=== PATIENT | female | born 1950 | race Hispanic/Latino ===

== ENCOUNTER 2022-02-11 22:50 | Inpatient (IN) | payer OTHER ==
[~2022-02-11] VITALS: Ht 162.6 cm; Wt 81.1 kg
[2022-02-11] MEDS ORDERED: NITROGLYCERIN 1GM OINT 1 INCH/1GM TD ONE (23:30)
[2022-02-11 23:34] LABS: BASOPHILS % (AUTO) 0.5 % (0.0-5.0); EOSINOPHILS % (AUTO) 0.9 % (0.0-8.0); HEMATOCRIT 34.5 % (36-48); LYMPHOCYTES % (AUTO) 26.8 % (21.0-51.0); MEAN CORPUSCULAR HEMOGLOBIN 28.6 pg (27.0-33.0); MEAN CORPUSCULAR VOLUME 86.7 fL (79-99); MONOCYTES % (AUTO) 7.4 % (3.0-13.0); NEUTROPHILS % (AUTO) 63.7 % (40.0-77.0); PLATELET COUNT (AUTO) 350 K/uL (130-400); RED BLOOD CELL COUNT(AUTO) 3.98 MIL/uL (4.00-5.50); RED CELL DISTRIBUTION WIDTH 13.6 % (11.0-15.5); WHITE BLOOD COUNT (AUTO) 10.3 K/uL (4.8-10.8)
[2022-02-11 23:45] LABS: CREATININE 2.2 mg/dL (0.5-1.5); POTASSIUM 4.2 mmol/L (3.5-5.1)
[2022-02-11 23:52] LABS: ALBUMIN 2.4 g/dL (3.5-5.0); BILIRUBIN,TOTAL 0.2 mg/dL (0.2-1.0); TOTAL PROTEIN, SERUM 5.7 g/dL (6.0-8.3)
[2022-02-11 23:53] LABS: APPEARANCE,URINE Clear (CLEAR); BILIRUBIN,URINE Negative (NEGATIVE); COLOR,URINE Yellow (YELLOW); GLUCOSE, URINE (UA) 500 mg/dL (NEGATIVE); KETONES,URINE Negative (NEGATIVE); LEUKOCYTE ESTERASE ,URINE Negative (NEGATIVE); NITRATE,URINE Negative (NEGATIVE); OCCULT BLOOD,URINE Trace (NEGATIVE); PROTEIN,URINE >=1000 mg/dL (NEGATIVE); UROBILINOGEN,URINE 0.2 mg/dL (0.2-1.0)
[2022-02-12 00:04] LABS: BACTERIA,URINE None Seen /HPF (None Seen); RBC,URINE 0-1 /HPF (0-1); SQUAMOUS EPITHELIAL CELL,UR Rare /HPF (0-2); WBC,URINE None Seen /HPF (0-1); YEAST,URINE BUDDING None Seen /HPF (None Seen)
[2022-02-12 00:05] LABS: MUCUS,URINE None Seen LPF (None Seen)
[2022-02-12] MEDS ORDERED: CLONIDINE HCL 0.1 MG TABLET ONE (00:39)
[2022-02-12] MEDS ORDERED: CLONIDINE HCL 0.1 MG TABLET PO ONE (01:00)
[2022-02-12] MEDS ORDERED: ATOR40TA69 PO (06:43)
[2022-02-12] MEDS ORDERED: GLIM4TAB36 PO (06:43)
[2022-02-12] MEDS ORDERED: METO100T14 PO (06:43)
[2022-02-12] MEDS ORDERED: LISI30TA4 PO (06:43)
[2022-02-12] MEDS ORDERED: HYDR12.54 PO (06:43)
[2022-02-12] MEDS ORDERED: METF-446 PO (06:43)
[2022-02-12] MEDS ORDERED: CLON0.1T PO (06:43)
[2022-02-12] MEDS ORDERED: GABA-529 PO (06:43)
[2022-02-12] MEDS ORDERED: SEMA2PEN SQ (06:44)
[2022-02-12] MEDS ORDERED: LACTULOSE 20 GM/30 ML UDCUP PO PRN (07:30)
[2022-02-12] MEDS ORDERED: ZOLPIDEM TARTRATE 5 MG TAB PO PRN (07:30)
[2022-02-12] MEDS ORDERED: MAG/ALUM/SIMETH 30 ML UDCUP PO PRN (07:30)
[2022-02-12] MEDS ORDERED: ACETAMINOPHEN 325 MG TAB PO PRN ×2 (07:30)
[2022-02-12] MEDS ORDERED: NITROGLYCERIN 0.4 MG SL TAB SL PRN (07:30)
[2022-02-12] MEDS ORDERED: GUAIFENESIN-DM 200/20 MG 10 ML PO PRN (07:30)
[2022-02-12] MEDS ORDERED: ONDANSETRON 4MG INJ IV PRN (07:30)
[2022-02-12] MEDS ORDERED: LISINOPRIL 20 MG TABLET PO SCH (09:00)
[2022-02-12] MEDS ORDERED: NON-FORMULARY MEDICATION 1 EACH (Lisinopril 30 MG) PO SCH (09:00)
[2022-02-12] MEDS ORDERED: HYDROCHLOROTHIAZIDE 25 MG TABLET PO SCH (09:00)
[2022-02-12] MEDS ORDERED: NON-FORMULARY MEDICATION 1 EACH (Metoprolol Tartrate 100 MG) PO SCH (09:00)
[2022-02-12] MEDS ORDERED: NON-FORMULARY MEDICATION 1 EACH (Hydrochlorothiazide 12.5 MG) PO SCH (09:00)
[2022-02-12] MEDS: METOPROLOL TARTRATE 50 MG TAB PO SCH ×2 (09:02→19:56)
[2022-02-12] MEDS: ENOXAPARIN SODIUM 40 MG/0.4 ML SYRINGE SQ SCH (09:02)
[2022-02-12] MEDS: GABAPENTIN 100 MG CAPSULE PO SCH (09:02)
[2022-02-12 09:35] VITALS: BP 193/77
[2022-02-12] MEDS ORDERED: ONDA-104 PO (10:05)
[2022-02-12] MEDS: CLONIDINE HCL 0.1 MG TABLET PO PRN ×2 (10:15→16:54)
[2022-02-12 11:00] VITALS: BP 128/68
[2022-02-12 15:45] VITALS: BP 170/80
[2022-02-12] MEDS ORDERED: ALBUTEROL 0.083% 2.5 MG/3 ML INH IH PRN (18:00)
[2022-02-12] MEDS ORDERED: HYDRALAZINE 20MG/ML VIAL IV PRN (18:00)
[2022-02-12 19:00] VITALS: BP 139/64
[2022-02-12] MEDS: ATORVASTATIN 40 MG TABLET PO SCH (19:55)
[2022-02-12] MEDS ORDERED: INSULIN LISPRO 100 UNIT/ML 3ML SQ ONE (20:00)
[2022-02-13] VITALS (7 sets, daily range): BP systolic 112–176; BP diastolic 57–79
[2022-02-13 04:41] LABS: BASOPHILS % (AUTO) 0.7 % (0.0-5.0); EOSINOPHILS % (AUTO) 3.3 % (0.0-8.0); HEMATOCRIT 30.2 % (36-48); LYMPHOCYTES % (AUTO) 32.8 % (21.0-51.0); MEAN CORPUSCULAR HEMOGLOBIN 28.9 pg (27.0-33.0); MEAN CORPUSCULAR HGB CONC 34.1 g/dL (32.0-36.0); MEAN CORPUSCULAR VOLUME 84.6 fL (79-99); MONOCYTES % (AUTO) 8.1 % (3.0-13.0); NEUTROPHILS % (AUTO) 54.5 % (40.0-77.0); PLATELET COUNT (AUTO) 332 K/uL (130-400); RED BLOOD CELL COUNT(AUTO) 3.57 MIL/uL (4.00-5.50); RED CELL DISTRIBUTION WIDTH 13.6 % (11.0-15.5)
[2022-02-13 04:55] LABS: BILIRUBIN,TOTAL 0.2 mg/dL (0.2-1.0); CREATININE 2.3 mg/dL (0.5-1.5)
[2022-02-13 04:56] LABS: ALBUMIN 2.1 g/dL (3.5-5.0); TOTAL PROTEIN, SERUM 5.1 g/dL (6.0-8.3)
[2022-02-13 05:05] LABS: B-TYPE NATRIURETIC PEPTIDE 138 pg/mL (0-100)
[2022-02-13] MEDS: METOPROLOL TARTRATE 50 MG TAB PO SCH (08:42)
[2022-02-13] MEDS: ENOXAPARIN SODIUM 40 MG/0.4 ML SYRINGE SQ SCH (08:43)
[2022-02-13] MEDS: PANTOPRAZOLE 40 MG TAB DR PO SCH (08:43)
[2022-02-13] MEDS: GABAPENTIN 100 MG CAPSULE PO SCH (08:43)
[2022-02-13] MEDS ORDERED: AMLODIPINE 5 MG TAB PO SCH (09:30)
[2022-02-13] MEDS: HYDRALAZINE 25MG TABLET PO SCH ×3 (09:53→20:52)
[2022-02-13] MEDS: INSULIN HUMULIN R 100 UNIT/ML 3ML SQ SCH ×2 (17:00→20:49)
[2022-02-13] MEDS: ATORVASTATIN 40 MG TABLET PO SCH (20:52)
[2022-02-14] VITALS (7 sets, daily range): BP systolic 124–179; BP diastolic 52–76
[2022-02-14] MEDS: METOPROLOL TARTRATE 50 MG TAB PO SCH ×3 (00:01→19:27)
[2022-02-14 05:10] LABS: BASOPHILS % (AUTO) 0.6 % (0.0-5.0); EOSINOPHILS % (AUTO) 4.7 % (0.0-8.0); HEMATOCRIT 28.1 % (36-48); LYMPHOCYTES % (AUTO) 34.7 % (21.0-51.0); MEAN CORPUSCULAR HEMOGLOBIN 28.2 pg (27.0-33.0); MEAN CORPUSCULAR HGB CONC 33.1 g/dL (32.0-36.0); MEAN CORPUSCULAR VOLUME 85.2 fL (79-99); MONOCYTES % (AUTO) 8.3 % (3.0-13.0); PLATELET COUNT (AUTO) 264 K/uL (130-400); RED CELL DISTRIBUTION WIDTH 13.3 % (11.0-15.5); WHITE BLOOD COUNT (AUTO) 8.9 K/uL (4.8-10.8)
[2022-02-14 05:24] LABS: BILIRUBIN,TOTAL 0.2 mg/dL (0.2-1.0); CREATININE 2.6 mg/dL (0.5-1.5); POTASSIUM 3.6 mmol/L (3.5-5.1); TOTAL PROTEIN, SERUM 4.7 g/dL (6.0-8.3)
[2022-02-14] MEDS: INSULIN HUMULIN R 100 UNIT/ML 3ML SQ SCH ×4 (05:43→20:09)
[2022-02-14] MEDS: GABAPENTIN 100 MG CAPSULE PO SCH (09:02)
[2022-02-14] MEDS: PANTOPRAZOLE 40 MG TAB DR PO SCH (09:02)
[2022-02-14] MEDS: ENOXAPARIN SODIUM 40 MG/0.4 ML SYRINGE SQ SCH (09:03)
[2022-02-14] MEDS: AMLODIPINE 5 MG TAB PO SCH (09:22)
[2022-02-14] MEDS: HYDRALAZINE 25MG TABLET PO SCH ×3 (09:22→19:27)
[2022-02-14] MEDS: ATORVASTATIN 40 MG TABLET PO SCH (19:27)
[2022-02-14] MEDS: INSULIN GLARGINE 100 UNITS/ML 10 ML VIAL SQ SCH (20:08)
[2022-02-15 00:03] VITALS: BP 155/61
[2022-02-15 04:25] VITALS: BP 164/57
[2022-02-15 04:45] LABS: BASOPHILS % (AUTO) 0.5 % (0.0-5.0); HEMATOCRIT 29.3 % (36-48); LYMPHOCYTES % (AUTO) 27.2 % (21.0-51.0); MEAN CORPUSCULAR HEMOGLOBIN 28.7 pg (27.0-33.0); MEAN CORPUSCULAR HGB CONC 33.8 g/dL (32.0-36.0); MEAN CORPUSCULAR VOLUME 84.9 fL (79-99); MONOCYTES % (AUTO) 9.7 % (3.0-13.0); NEUTROPHILS % (AUTO) 57.9 % (40.0-77.0); PLATELET COUNT (AUTO) 255 K/uL (130-400); RED BLOOD CELL COUNT(AUTO) 3.45 MIL/uL (4.00-5.50); RED CELL DISTRIBUTION WIDTH 13.6 % (11.0-15.5); WHITE BLOOD COUNT (AUTO) 9.2 K/uL (4.8-10.8)
[2022-02-15 05:03] LABS: BILIRUBIN,TOTAL 0.2 mg/dL (0.2-1.0); CREATININE 2.2 mg/dL (0.5-1.5); POTASSIUM 3.8 mmol/L (3.5-5.1); TOTAL PROTEIN, SERUM 4.8 g/dL (6.0-8.3)
[2022-02-15] MEDS: INSULIN HUMULIN R 100 UNIT/ML 3ML SQ SCH ×2 (05:24→11:50)
[2022-02-15] MEDS: INSULIN GLARGINE 100 UNITS/ML 10 ML VIAL SQ SCH (05:25)
[2022-02-15 07:05] VITALS: BP 164/71
[2022-02-15] MEDS: GABAPENTIN 100 MG CAPSULE PO SCH (07:39)
[2022-02-15] MEDS: ENOXAPARIN SODIUM 40 MG/0.4 ML SYRINGE SQ SCH (07:39)
[2022-02-15] MEDS: PANTOPRAZOLE 40 MG TAB DR PO SCH (07:39)
[2022-02-15] MEDS: METOPROLOL TARTRATE 50 MG TAB PO SCH (07:39)
[2022-02-15] MEDS: AMLODIPINE 5 MG TAB PO SCH (07:39)
[2022-02-15] MEDS: HYDRALAZINE 25MG TABLET PO SCH ×2 (07:41→14:30)
[2022-02-15 11:10] VITALS: BP 131/59
[2022-02-15] MEDS ORDERED: AMLO5TAB4 PO ×2 (16:59→17:22)
[2022-02-15] MEDS ORDERED: HYDR25 PO (16:59)
[2022-02-15] MEDS ORDERED: CHOL500050 PO (17:22)
[2022-02-15] MEDS ORDERED: HYDRALAZINE 25MG TABLET PO SCH (21:00)
== END 2022-02-15 17:48 | disposition home or self-care (01) | DRG 305 ==
LOC: EDH 22:50 → EDHIP 02-12 03:43 → OBSVTOIN 02-12 03:43 → 4CH 02-12 09:46
PROVIDERS: ADMIT Internal Medicine Critical Care Medicine; ATTEND Internal Medicine Critical Care Medicine
DX: I16.1 Hypertensive emergency (principal); N18.4 Chronic kidney disease, stage 4 (severe); N17.9 Acute kidney failure, unspecified; E78.00 Pure hypercholesterolemia, unspecified; Z96.641 Presence of right artificial hip joint; I13.0 Hypertensive heart and chronic kidney disease with heart failure and stage 1 through stage 4 chronic kidney disease, or unspecified chronic kidney disease; E78.5 Hyperlipidemia, unspecified; K21.9 Gastro-esophageal reflux disease without esophagitis; I50.9 Heart failure, unspecified; E11.22 Type 2 diabetes mellitus with diabetic chronic kidney disease; I25.10 Atherosclerotic heart disease of native coronary artery without angina pectoris; Z79.899 Other long term (current) drug therapy; M54.9 Dorsalgia, unspecified
CPT/HCPCS: 36415; 71045; 76700; 80053; 81001; 82948; 83690; 83735; 83880; 84100; 84484; 85025; 93005; G0378; J1650; J1815

== ENCOUNTER 2022-03-05 12:02 | Observation (INO) | payer OTHER ==
[~2022-03-05] VITALS: Ht 152.4 cm; Wt 87.5 kg
[~2022-03-05 12:02] MED LIST: AMLO5TAB4 PO; ATOR40TA69 PO; CHOL500050 PO; GABA-529 PO; GLIM4TAB36 PO; HYDR25 PO; METO100T14 PO; ONDA-104 PO; SEMA2PEN SQ
[2022-03-05 12:47] LABS: BASOPHILS % (AUTO) 0.2 % (0.0-5.0); EOSINOPHILS % (AUTO) 0.1 % (0.0-8.0); HEMATOCRIT 32.6 % (36-48); LYMPHOCYTES % (AUTO) 11.2 % (21.0-51.0); MEAN CORPUSCULAR HEMOGLOBIN 29.1 pg (27.0-33.0); MEAN CORPUSCULAR HGB CONC 32.5 g/dL (32.0-36.0); MEAN CORPUSCULAR VOLUME 89.6 fL (79-99); MONOCYTES % (AUTO) 5.5 % (3.0-13.0); NEUTROPHILS % (AUTO) 82.5 % (40.0-77.0); PLATELET COUNT (AUTO) 342 K/uL (130-400); RED BLOOD CELL COUNT(AUTO) 3.64 MIL/uL (4.00-5.50); RED CELL DISTRIBUTION WIDTH 14.2 % (11.0-15.5); WHITE BLOOD COUNT (AUTO) 8.1 K/uL (4.8-10.8)
[2022-03-05] MEDS ORDERED: FAMOTIDINE 20MG VIAL IV ONE (13:00)
[2022-03-05] MEDS ORDERED: ONDANSETRON 4MG INJ IVP ONE (13:00)
[2022-03-05] MEDS ORDERED: 0.9%NACL 1000ML 1,000 ML IV ONE (13:00)
[2022-03-05 13:19] LABS: APPEARANCE,URINE Clear (CLEAR); BILIRUBIN,URINE Negative (NEGATIVE); COLOR,URINE Yellow (YELLOW); GLUCOSE, URINE (UA) >=1000 mg/dL (NEGATIVE); KETONES,URINE 15 mg/dL (NEGATIVE); LEUKOCYTE ESTERASE ,URINE Negative (NEGATIVE); NITRATE,URINE Negative (NEGATIVE); OCCULT BLOOD,URINE Trace (NEGATIVE); PROTEIN,URINE >=1000 mg/dL (NEGATIVE); UROBILINOGEN,URINE 0.2 mg/dL (0.2-1.0)
[2022-03-05 13:28] LABS: CREATININE 1.9 mg/dL (0.5-1.5); POTASSIUM 4.5 mmol/L (3.5-5.1)
[2022-03-05 13:31] LABS: BACTERIA,URINE Rare /HPF (None Seen); RBC,URINE 0-1 /HPF (0-1); SQUAMOUS EPITHELIAL CELL,UR Rare /HPF (0-2); WBC,URINE 0-1 /HPF (0-1)
[2022-03-05 13:41] LABS: ALBUMIN 2.9 g/dL (3.5-5.0); BILIRUBIN,TOTAL 0.3 mg/dL (0.2-1.0); TOTAL PROTEIN, SERUM 6.5 g/dL (6.0-8.3)
[2022-03-05 14:01] LABS: ABG BASE EXCESS -7.4 mmol/L (-2.0-3.0); ABG OXYGEN SATURATION 97.3 % (95.0-99.0); ABG PCO2 32 mmHg (32-45)
[2022-03-05] MEDS ORDERED: HYDRALAZINE 20MG/ML VIAL IM ONE (14:30)
[2022-03-05] MEDS: LACTATED RINGERS 1000ML 1,000 ML IV SCH (18:14)
[2022-03-05] MEDS ORDERED: BACL10TA PO (19:40)
[2022-03-05] MEDS ORDERED: AMLO-257 PO (19:40)
[2022-03-05] MEDS ORDERED: EMPA10TA PO (19:40)
[2022-03-05] MEDS ORDERED: FURO20TA6 PO (19:40)
[2022-03-05] MEDS ORDERED: GLIM4TAB36 PO (19:40)
[2022-03-05] MEDS ORDERED: HYDR-4153 PO (19:40)
[2022-03-05] MEDS ORDERED: GABA-529 PO (19:40)
[2022-03-05] MEDS: PANTOPRAZOLE 40 MG/VIAL IVP SCH (21:13)
[2022-03-05] MEDS: METOPROLOL TARTRATE 25 MG TAB PO SCH (21:13)
[2022-03-05] MEDS ORDERED: ONDANSETRON 4MG INJ IVP PRN (22:00)
[2022-03-06 01:40] VITALS: BP 184/82
[2022-03-06] MEDS: LACTATED RINGERS 1000ML 1,000 ML IV SCH (02:13)
[2022-03-06 04:29] VITALS: BP 179/80
[2022-03-06 06:02] LABS: BASOPHILS % (AUTO) 0.6 % (0.0-5.0); EOSINOPHILS % (AUTO) 1.2 % (0.0-8.0); HEMATOCRIT 27.2 % (36-48); LYMPHOCYTES % (AUTO) 23.1 % (21.0-51.0); MEAN CORPUSCULAR HEMOGLOBIN 29.2 pg (27.0-33.0); MEAN CORPUSCULAR HGB CONC 33.1 g/dL (32.0-36.0); MEAN CORPUSCULAR VOLUME 88.3 fL (79-99); MONOCYTES % (AUTO) 7.2 % (3.0-13.0); NEUTROPHILS % (AUTO) 67.6 % (40.0-77.0); PLATELET COUNT (AUTO) 287 K/uL (130-400); RED BLOOD CELL COUNT(AUTO) 3.08 MIL/uL (4.00-5.50); RED CELL DISTRIBUTION WIDTH 14.5 % (11.0-15.5); WHITE BLOOD COUNT (AUTO) 6.6 K/uL (4.8-10.8)
[2022-03-06 06:18] LABS: ALBUMIN 2.5 g/dL (3.5-5.0); BILIRUBIN,TOTAL 0.3 mg/dL (0.2-1.0); MAGNESIUM 1.9 mg/dL (1.80-2.40); PHOSPHORUS 4.2 mg/dL (2.5-4.9); POTASSIUM 4.1 mmol/L (3.5-5.1); TOTAL PROTEIN, SERUM 5.7 g/dL (6.0-8.3)
[2022-03-06 06:27] LABS: ABG BASE EXCESS -2.2 mmol/L (-2.0-3.0); ABG HCO3 22.2 mmol/L (21.0-28.0); ABG OXYGEN SATURATION 91.6 % (95.0-99.0); ABG PCO2 37 mmHg (32-45)
[2022-03-06 08:15] VITALS: BP 196/91
[2022-03-06] MEDS ORDERED: INSLAN SQ (08:21)
[2022-03-06] MEDS: METOPROLOL TARTRATE 25 MG TAB PO SCH (08:22)
[2022-03-06] MEDS: PANTOPRAZOLE 40 MG/VIAL IVP SCH (08:22)
[2022-03-06 10:19] VITALS: BP 161/84
[2022-03-06 11:15] VITALS: BP 169/75
[2022-03-06] MEDS: INSULIN HUMULIN R 100 UNIT/ML 3ML SQ SCH ×2 (11:54→16:30)
[2022-03-06] MEDS ORDERED: FUROSEMIDE 40MG VIAL IV STA (12:53)
[2022-03-06] MEDS ORDERED: METOPROLOL TARTRATE 50 MG TAB PO STA (12:54)
[2022-03-06] MEDS ORDERED: PHARMACY COMMUNICATION MISC SCH ×2 (13:00→16:00)
[2022-03-06] MEDS ORDERED: FUROSEMIDE 20MG VIAL IV SCH (13:00)
[2022-03-06] MEDS ORDERED: AMLODIPINE 5 MG TAB PO ONE (13:30)
[2022-03-06] MEDS ORDERED: HYDRALAZINE 25MG TABLET PO SCH (14:00)
[2022-03-06] MEDS ORDERED: METOPROLOL TARTRATE 1 MG/ML 5ML VIAL IV PRN (16:00)
[2022-03-06 16:20] VITALS: BP 176/85
[2022-03-06] MEDS ORDERED: METOPROLOL TARTRATE 25 MG TAB PO SCH (21:00)
[2022-03-07] MEDS ORDERED: AMLODIPINE 5 MG TAB PO SCH (09:00)
== END 2022-03-06 19:05 | disposition home or self-care (01) ==
LOC: EDH 12:02 → EDHIP 17:44 → 3AH 03-06 01:35
PROVIDERS: ADMIT Internal Medicine Pulmonary Disease; ATTEND Internal Medicine Pulmonary Disease
DX: E86.0 Dehydration (principal); R11.2 Nausea with vomiting, unspecified; D72.810 Lymphocytopenia; I12.9 Hypertensive chronic kidney disease with stage 1 through stage 4 chronic kidney disease, or unspecified chronic kidney disease; N18.4 Chronic kidney disease, stage 4 (severe); E11.22 Type 2 diabetes mellitus with diabetic chronic kidney disease; E11.65 Type 2 diabetes mellitus with hyperglycemia; E78.00 Pure hypercholesterolemia, unspecified; Z79.4 Long term (current) use of insulin; Z79.84 Long term (current) use of oral hypoglycemic drugs; Z79.899 Other long term (current) drug therapy; Z96.641 Presence of right artificial hip joint
CPT/HCPCS: 36415 ×2; 36600 ×2; 71045 ×2; 80053 ×2; 81001; 82010; 82803 ×2; 82948 ×4; 83605 ×2; 83735; 83880; 84100; 84145; 84484; 85025 ×2; 87040 ×2; 87804 ×2; 93005; 96361 ×2; 96372; 96374; 96375 ×2; 96376; 99285; C9113 ×2; G0378 ×25; J0360; J1815; J1940; J2405 ×2; J3490 ×2; J7030; J7120

== ENCOUNTER → 2022-07-01 | Outpatient (CLI) | payer OTHER ==
[~2022-07-01] MED LIST changes: +AMLO-257 PO; -AMLO5TAB4 PO; +EMPA10TA PO; +FOLI1TAB85 PO; +FURO20TA6 PO; -GABA-529 PO; +GABA-533 PO; +HYDR100T27 PO; +INSLAN SQ; +METO-409 PO
== END | disposition home or self-care (01) ==
LOC: RAH 09:01
PROVIDERS: ATTEND Internal Medicine
DX: M47.816 Spondylosis without myelopathy or radiculopathy, lumbar region (principal); R29.898 Other symptoms and signs involving the musculoskeletal system
CPT/HCPCS: 72148

== ENCOUNTER → 2022-09-02 | Outpatient (CLI) | payer OTHER | END | disposition home or self-care (01) | LOC: RAH 14:22 | PROVIDERS: ATTEND Neurological Surgery | DX: M51.16 Intervertebral disc disorders with radiculopathy, lumbar region (principal) | CPT/HCPCS: 72148 ==

== ENCOUNTER → 2022-11-22 | Outpatient (CLI) | payer OTHER ==
[2022-11-22 12:33] LABS: CREATININE 2.9 mg/dL (0.5-1.5); POTASSIUM 4.7 mmol/L (3.5-5.1)
== END | disposition home or self-care (01) ==
LOC: LAB 11:17
PROVIDERS: ATTEND Physician Assistant
DX: I10 Essential (primary) hypertension (principal)
CPT/HCPCS: 36415; 80048; 83880

== ENCOUNTER 2023-12-23 08:52 | Day surgery (SDC) | payer OTHER ==
[2023-12-22 10:55] LABS: MEAN CORPUSCULAR HEMOGLOBIN 30.3 pg (27.0-33.0); MEAN CORPUSCULAR HGB CONC 32.4 g/dL (32.0-36.0); MEAN CORPUSCULAR VOLUME 93.7 fL (79-99); RED BLOOD CELL COUNT(AUTO) 3.63 MIL/uL (4.00-5.50); WHITE BLOOD COUNT (AUTO) 9.6 K/uL (4.8-10.8)
[2023-12-22 11:02] LABS: CREATININE 5.4 mg/dL (0.5-1.5); INR <= 0.93 (0.85-1.15); POTASSIUM 4.3 mmol/L (3.5-5.1); PROTHROMBIN TIME 9.7 SEC (9.6-11.6)
[2023-12-22 11:03] LABS: PARTIAL THROMBOPLASTIN TIME 23.4 SEC (26.3-35.5)
[2023-12-22 11:46] VITALS: BP 131/60; PULSE 66; RESP 18
[2023-12-23] VITALS (17 sets, daily range): BP systolic 128–165; BP diastolic 54–84; PULSE 66–83; RESP 14–16
[~2023-12-23] VITALS: Ht 162.6 cm; Wt 79.4 kg
[~2023-12-23 08:52] MED LIST changes: +ATOR10 PO; -ATOR40TA69 PO; -CHOL500050 PO; -EMPA10TA PO; -FOLI1TAB85 PO; -FURO20TA6 PO; -GABA-533 PO; -HYDR25 PO; +ISOS30TA92 PO; -METO-409 PO; -METO100T14 PO; +METO25TA6 PO; -ONDA-104 PO; -SEMA2PEN SQ; +SEVE800T27 PO; +VITAMIN D3 PO
[2023-12-23 09:38] LABS: CREATININE 3.3 mg/dL (0.5-1.5)
[2023-12-23] MEDS ORDERED: CEFAZOLIN SODIUM 1 GM VIAL ONE (10:35)
[2023-12-23] MEDS: CEFAZOLIN SODIUM 2 GM VIAL ONE (10:51)
[2023-12-23] MEDS: 0.9% NACL 500ML IV.SOLN 500 ML IV ONE (10:52)
[2023-12-23] MEDS ORDERED: LIDOCAINE PF 100MG/5ML (2%) SYRINGE 5ML ONE (10:56)
[2023-12-23] MEDS ORDERED: ONDANSETRON 4MG INJ ONE (10:56)
[2023-12-23] MEDS ORDERED: SUCCINYLCHOLINE CHLORIDE 20 MG/ML 10 ML VIAL ONE (10:56)
[2023-12-23] MEDS ORDERED: DEXAMETHASONE SOD PHOSPHATE 10MG/ML 1ML VIAL ONE (10:56)
[2023-12-23] MEDS ORDERED: GLYCOPYRROLATE 0.2 MG/ML 5 ML VIAL ONE (10:57)
[2023-12-23] MEDS ORDERED: PROPOFOL 10 MG/ML 20ML VIAL IV ONE (10:57)
[2023-12-23] MEDS ORDERED: ROCURONIUM BROMIDE 10MG/1ML 5ML VL ONE (10:57)
[2023-12-23] MEDS ORDERED: FENTANYL CITRATE PF 50 MCG/1 ML 2ML VIAL ONE (10:57)
[2023-12-23] MEDS ORDERED: NEOSTIGMINE METHYLSULFATE 1MG/ML IV ONE (10:57)
[2023-12-23] MEDS ORDERED: DEXTROSE 50%-WATER 50 ML DISP.SYRIN IV ONE (11:08)
[2023-12-23] MEDS: CEFAZOLIN SODIUM 2 GM VIAL IVPB ONE (11:10)
[2023-12-23] MEDS: CEFAZOLIN SODIUM 1 GM VIAL IRRIG ONE (11:34)
[2023-12-23] MEDS ORDERED: LIDOCAINE HCL 1% 20 ML VIAL ONE (11:38)
[2023-12-23] MEDS ORDERED: BUPIVACAINE/PF 0.25% 30ML VIAL IJ ONE (11:38)
[2023-12-23] MEDS: BUPIVACAINE/EPI/PF 0.25% 30ML VIAL IJ ONE (11:42)
[2023-12-23] MEDS: LIDOCAINE HCL 1% 20 ML VIAL INJ ONE (11:42)
== END 2023-12-23 13:40 | disposition home or self-care (01) ==
LOC: DAH 08:52
PROVIDERS: ATTEND Thoracic Surgery (Cardiothoracic Vascular Surgery)
DX: E11.22 Type 2 diabetes mellitus with diabetic chronic kidney disease (principal); I77.0 Arteriovenous fistula, acquired; I12.0 Hypertensive chronic kidney disease with stage 5 chronic kidney disease or end stage renal disease; N18.6 End stage renal disease; I25.10 Atherosclerotic heart disease of native coronary artery without angina pectoris; Z79.01 Long term (current) use of anticoagulants; Z79.899 Other long term (current) drug therapy; Z79.4 Long term (current) use of insulin; Z98.890 Other specified postprocedural states
CPT/HCPCS: 80048 ×2; 85027; 85610; 85730; 86850; 86900; 86901; 36415 ×2; 71045; 93005; 36821; 82948 ×2; A6260; A4663; A6207; J7030; A4215 ×2; A4452; J7040; J3010; J0690 ×4; J1100; J0330; J0665; J7070; J3490 ×3; J2001; J2704; J2405; J2710; J1644; A4649; C1713 ×2; A4930; A4223; A4222; A4221; G0168

== ENCOUNTER → 2024-05-11 | Outpatient (CLI) | payer OTHER ==
[~2024-05-11] MED LIST changes: +HYDR100T15 PO; -HYDR100T27 PO
== END | disposition home or self-care (01) ==
LOC: SHCH 12:41
PROVIDERS: ATTEND Internal Medicine Cardiovascular Disease
DX: I87.2 Venous insufficiency (chronic) (peripheral) (principal); I73.9 Peripheral vascular disease, unspecified
CPT/HCPCS: 93925; 93970

== ENCOUNTER → 2024-05-20 | Outpatient (CLI) | payer OTHER ==
[2024-05-20 12:05] LABS: BASOPHILS # (AUTO) 0.05 K/uL (0.00-0.20); BASOPHILS % (AUTO) 0.5 % (0.0-5.0); EOSINOPHILS # (AUTO) 0.24 K/uL (0.00-0.70); EOSINOPHILS % (AUTO) 2.5 % (0.0-8.0); HEMATOCRIT 39.3 % (36-48); IMMATURE GRANULOCYTE ABSOLUTE 0.05 K/uL (0-1); LYMPHOCYTES # (AUTO) 1.6 K/uL (1.0-4.8); LYMPHOCYTES % (AUTO) 16.9 % (21.0-51.0); MEAN CORPUSCULAR HEMOGLOBIN 31.6 pg (27.0-33.0); MEAN CORPUSCULAR HGB CONC 32.6 g/dL (32.0-36.0); MONOCYTES # (AUTO) 0.7 K/uL (0.1-1.0); NEUTROPHILS # (AUTO) 6.9 K/uL (1.8-7.7); NEUTROPHILS % (AUTO) 72.6 % (40.0-77.0); PLATELET COUNT (AUTO) 296 K/uL (130-400); RED BLOOD CELL COUNT(AUTO) 4.05 MIL/uL (4.00-5.50); RED CELL DISTRIBUTION WIDTH 14.6 % (11.0-15.5); WHITE BLOOD COUNT (AUTO) 9.5 K/uL (4.8-10.8)
[2024-05-20 12:14] LABS: CREATININE 4.1 mg/dL (0.5-1.0); POTASSIUM 4.9 mmol/L (3.5-5.1)
[2024-05-20 12:15] LABS: INR <= 0.93 (0.85-1.15)
[2024-05-20 12:16] LABS: PARTIAL THROMBOPLASTIN TIME 24.9 SEC (26.3-35.5)
== END | disposition home or self-care (01) ==
LOC: LAB 08:56
PROVIDERS: ATTEND Internal Medicine Cardiovascular Disease
DX: Z01.812 Encounter for preprocedural laboratory examination (principal); I25.119 Atherosclerotic heart disease of native coronary artery with unspecified angina pectoris; N18.6 End stage renal disease
CPT/HCPCS: 36415; 80048; 85025; 85610; 85730